=== PATIENT | female | born 1945 | race Caucasian/White ===

== ENCOUNTER 2019-01-05 20:42 | Inpatient (IN) ==
[2019-01-05 22:13] LABS: BASO# 0.03 X1000 (0.0-0.2); BASO% 0.1 % (0.0-0.8); EOS# 0.04 X1000 (0.0-0.7); EOS% 0.2 % (0.0-10.0); HEMATOCRIT 35.1 % (37.0-47.0); HEMOGLOBIN 11.6 g/dL (12.0-16.0); IMM GRAN# 0.09 X1000 (0.0-0.04); IMM GRAN% 0.4 % (0.0-0.5); LYMPH# 1.42 X1000 (1.2-3.4); LYMPH% 6.9 % (20.5-51.1); MCH 29.7 PG (27-31); MCV 89.8 FL (81-99); MONO% 7.7 % (1.7-9.3); MPV 9.7 FL (7.4-10.4); NEUT# 17.53 X1000 (1.4-6.5); NEUT% 84.7 % (42.2-75.2); PLT 319 X1000 (130-400); RBC 3.91 XMIL (4.2-5.4); RDW 13.9 % (11.5-14.5); WBC 20.71 X1000 (4.8-10.8)
[2019-01-05] MEDS ORDERED: VANCOMYCIN 1 GM/NS 1 GM/250 ML IVPB IV ONE (22:15)
[2019-01-05] MEDS ORDERED: NS 1,000 ML IV ONE ×2 (22:18→22:42)
[2019-01-05 22:25] LABS: AGAP 12; BUN 22 mg/dL (8-22); CALCIUM 8.2 mg/dL (8.8-10.2); CHLORIDE 98 mmol/L (98-107); COSMO 276; CREATININE 0.8 mg/dL (0.5-0.9); ESTIMATED GFR > 60; GLUCOSE 116 mg/dL (70-104); POTASSIUM 3.9 mmol/L (3.5-5.1); SODIUM 136 mmol/L (136-145); TCO2 26 mmol/L (25-35)
[2019-01-05 22:31] LABS: PTT 35.2 Seconds (22.3-41.8)
[2019-01-05] MEDS ORDERED: TORADOL IV PRN (22:42)
[2019-01-05] MEDS ORDERED: ROCEPHIN 1 GM in NS 50 ML IV ONE (22:42)
[2019-01-05 22:56] LABS: INR 1.25; PROTIME 16.3 Seconds (11.0-16.0)
--- NOTE | 2019-01-06 00:22 | PROVIDER DOCUMENTATION ---
This chart was entered by Mamta Shin Scribe, acting as scribe for Becky Saldana CRNP. HPI-General Adult - General Chief Complaint: Extremity Pain Stated Complaint: LEG PAIN & RASH Time Seen by Provider: 01/05/19 21:27 Source: patient Allergies/Adverse Reactions: Patient Allergies Allergy/AdvReac Type Severity Reaction Status Date / Time adhesive tape Allergy RASH Verified 01/05/19 21:27 Penicillins Allergy RASH Verified 01/05/19 21:27 Home Medications: Home Medication List Medication Instructions Recorded Confirmed Last Taken Type NK [No Home Medications] 01/05/19 01/05/19 Unknown History - History of Present Illness -Gen Adult Nature of Presenting Problems: 73 y/o female presents to ED with swelling and redness of bilateral lower extremities onset 3 weeks ago. RLE is worse than LLE. Pt reports she had a fever of 101 yesterday. Pt is alert and oriented. Location of Pain/Injury: reports: lower extremity Pain Radiation: reports: no radiation Quality of Pain: reports: fullness Severity: reports: moderate, severe Onset/Duration: reports: other (3 weeks ago) Timing: reports: still present Context/Activities at Onset: reports: none Modifying Factors: improves with: nothing Associated Symptoms: reports: fever/chills, other (swelling/redness of bilateral lower extremities) Similar Symptoms Previously?: No Recently seen or treated by another doctor?: No Review of Systems - Adult - REVIEW OF SYSTEMS - ADULT Constitutional: reports: fever. denies: chills Eyes: reports: no symptoms reported Ears, Nose, Mouth & Throat: reports: no symptoms reported Cardiovascular: denies: chest pain, palpitations Respiratory: denies: cough, shortness of breath Gastrointestinal: denies: abdominal pain, diarrhea, nausea, vomiting Genitourinary: reports: no symptoms reported Musculoskeletal: reports: other (swelling/redness of bilateral lower extremities). denies: back pain, joint pain Integumentary: reports: no symptoms reported Neurological: denies: dizziness/vertigo, seizure Psychiatric: reports: no symptoms reported Endocrine: reports: no symptoms reported Hematologic/Lymphatic: reports: no symptoms reported Allergic/Immunologic: reports: no symptoms reported All Other Systems: Reviewed and Negative Past History - Adult - PAST MEDICAL HISTORY-ADULT Review of Records: reports: Old Records Reviewed, Nursing Assessment Review, Medications Reviewed Major Childhood Illnesses: reports: denies history Respiratory: reports: asthma Gastrointestinal: reports: GERD Psychiatric: reports: anxiety, depression - PRIOR SURGERIES/PROCEDURES Surgical/Procedure History: reports: none - IMMUNIZATION STATUS Childhood Immunizations: See Nurse Assessment Flu Vaccine: See Nurse Assessment - FAMILY HISTORY Family History: reviewed, not pertinent - SOCIAL HISTORY Smoking: non-smoker Substance Use: none/never Alcohol Use Frequency: never Living Situation: family Physical Exam-General - PHYSICAL EXAM-ADULT Initial Vital Signs Reviewed: Yes - CONSTITUTIONAL General Appearance: appears well, alert, no apparent distress - EYES Eyes: PERRL/EOMI, pink conjunctivae - HEAD, EARS, NOSE, MOUTH & THROAT HENMT: normocephalic/atraumatic, moist mucous membranes, normal ENT inspection - NECK Neck: non-tender, full range of motion - RESPIRATORY Respiratory: chest non-tender, lungs clear, normal breath sounds - CARDIOVASCULAR Cardiovascular: normal peripheral pulses, regular rate, rhythm - GASTROINTESTINAL (ABDOMEN) Abdominal Exam: normal bowel sounds, non tender, soft - MUSCULOSKELETAL Back Exam: normal inspection, no CVA tenderness Extremity: normal range of motion, non-tender, normal gait, swelling (RLE red up to mid thigh with weeping pitting edema), other (RLE red up to mid thigh with weeping pitting edema; LLE mildly erythematic; broken skin to bilateral lower extremities with excoriation worse on the feet) - SKIN Integumentary: normal color, warm/dry, erythema (RLE red up to mid thigh with weeping pitting edema; LLE mildly erythematic), swelling (RLE red up to mid thigh with weeping pitting edema), other (broken skin to bilateral lower extremities with excoriation worse on the feet) - NEUROLOGIC Neurologic: grossly normal - PSYCHIATRIC Psych/Mental Status: normal mood/affect, normal thought content, normal thought process Progress - PLAN OF CARE/RESULTS Progress/Plan/Lab Results: Vital Signs - 8 hr 01/05/19 21:04 Temperature 98.6 F Pulse Rate 114 H Respiratory Rate 20 Blood Pressure 119/65 O2 Sat by Pulse Oximetry 97 Orders Category Date Time Status Admit - [facility] Routine AdmDCTranf 01/05/19 22:42 Active Activity - Up Ad Bibi ORDERED Care 01/05/19 22:42 Active Saline Loc DIRECTED Care 01/05/19 22:42 Active Saline Loc NOW Care 01/05/19 21:32 Active Vital Signs Order ROUTINE Care 01/05/19 22:42 Active Regular Diet Diet 01/05/19 22:44 Active BASIC METABOLIC PANEL [CHEM] Stat Lab 01/05/19 21:40 Completed BLOOD CULTURE [BLDCUL] Stat Lab 01/05/19 21:40 Ordered CBC WITH ELECTRONIC DIFF [HEME] Stat Lab 01/05/19 21:40 Completed LACTATE, PLASMA [CHEM] Stat Lab 01/05/19 21:40 Completed PRO B-NATRIURETIC PEPTIDE Stat Lab 01/05/19 21:40 Completed PT [PROTIME WITH INR] [COAG] Stat Lab 01/05/19 21:40 Completed PTT [COAG] Stat Lab 01/05/19 21:40 Completed TROPONIN T Stat Lab 01/05/19 21:40 Completed 0.9% Sodium Chloride Inj [Ns] 1,000 ml Med 01/05/19 22:42 Active IV 50 mls/hr 0.9% Sodium Chloride Inj [Ns] 1,000 ml Med 01/05/19 22:18 Active IV 999 mls/hr CefTRIAXONE [Rocephin] 1 gm Med 01/05/19 22:42 Discontinued 0.9% Sodium Chloride Inj [Ns] 50 ml IV NOW Ketorolac [Toradol] Med 01/05/19 22:42 Active 15 mg IV Q4H PRN PRN Vancomycin 1 gm/Ns Med 01/05/19 22:15 Active 1 gm in 250 ml IV NOW Oxygen Device Routine Oth 01/05/19 22:44 Active Transfer/Admit Order [TRANSFER] Routine Transfer 01/05/19 22:45 Ordered Laboratory Tests 01/05/19 01/05/19 01/05/19 21:40 21:40 21:40 WBC 20.71 H RBC 3.91 L Hgb 11.6 L Hct 35.1 L MCV 89.8 MCH 29.7 MCHC 33.0 RDW Std Deviation 13.9 Plt Count 319 MPV 9.7 Immature Gran % (Auto) 0.4 Neut % (Auto) 84.7 H Lymph % (Auto) 6.9 L Louisa % (Auto) 7.7 Eos % (Auto) 0.2 Baso % (Auto) 0.1 Immature Gran # (Auto) 0.09 H Neut # (Auto) 17.53 H Lymph # (Auto) 1.42 Louisa # (Auto) 1.60 H Eos # (Auto) 0.04 Baso # (Auto) 0.03 Segmented Neutrophils Not Reportable PT INR PTT (Actin FS) Sodium 136 Potassium 3.9 Chloride 98 Carbon Dioxide 26 Anion Gap 12 BUN 22 Creatinine 0.8 Estimated GFR/1.73 m2 > 60 BUN/Creatinine Ratio 28 Glucose 116 H Calculated Osmolality 276 Calcium 8.2 L Troponin T < 0.010 Tyd-N-Cqirnfqugpw Pept Plasma Lactate 01/05/19 01/05/19 01/05/19 21:40 21:40 21:40 WBC RBC Hgb Hct MCV MCH MCHC RDW Std Deviation Plt Count MPV Immature Gran % (Auto) Neut % (Auto) Lymph % (Auto) Louisa % (Auto) Eos % (Auto) Baso % (Auto) Immature Gran # (Auto) Neut # (Auto) Lymph # (Auto) Louisa # (Auto) Eos # (Auto) Baso # (Auto) Segmented Neutrophils PT 16.3 H INR 1.25 PTT (Actin FS) 35.2 Sodium Potassium Chloride Carbon Dioxide Anion Gap BUN Creatinine Estimated GFR/1.73 m2 BUN/Creatinine Ratio Glucose Calculated Osmolality Calcium Troponin T Ghk-E-Rhwnddgwpyk Pept 981 H Plasma Lactate 1.6 Result Diagrams: 01/05/19 21:40 01/05/19 21:40 - CONSULTS/PCP/HOSPITALIST Notification #1 *Consult/PCP/Hospitalist*: Dr. Quintana Time Discussed: 22:41 Reason/Comments: Cellulitis Consult Disposition: Admit Departure - Departure Date of Disposition Decision: 01/05/19 Time of Disposition Decision: 22:41 DIAGNOSIS: Cellulitis Qualifiers: Site of cellulitis: extremity Site of cellulitis of extremity: lower extremity Laterality: unspecified laterality Qualified Code(s): L03.119 - Cellulitis of unspecified part of limb Disposition: ADMITTED INPATIENT 09 Certified Medical Emergency: Emergent Condition: Fair Referrals and Follow-Ups: None,PCP [Primary Care Provider] - - Critical Care Note This patient required my direct & personal management of CC.: No Attestation - Physician/ MAX Attestation Patient care was provided by Advanced Practice Provider:: Yes Advanced Practice Provider:: Becky Saldana Advanced Practice Provider documentation review:: The Mid-level provider documentation, treatment plan and medical decision making was reviewed by the physician who agrees with all treatment and medical decision making by the MLP. The physician spent face to face time with patient:: No Advanced Practice Provider documentation review:: Supervising physician onsite and consulted in the evaluation and care of this patient. The physician did not have a face to face encounter with the patient. This chart was documented by the indicated scribe, (Mamta Shin, Anh) and accurately reflects the services I performed and decisions made by me, Becky Saldana CRNP, as attested by the provider's signature.
[2019-01-06 04:03] LABS: BILIRUBIN URINE NEGATIVE (NEGATIVE); BLOOD URINE NEGATIVE (NEGATIVE); CLARITY CLEAR (CLEAR); COLOR AMBER; GLUCOSE URINE NEGATIVE (NEGATIVE); KETONE URINE TRACE mg/dL (NEGATIVE); LEUKOCYTES URINE 1+ (NEGATIVE); NITRITE URINE NEGATIVE (NEGATIVE); PH URINE 6.5; PROTEIN URINE 1+(30 mg/dL) mg/dL (NEGATIVE); URINE BACTERIA 2+ /HFP; URINE EPITHELIAL CELLS <10 /HPF (<10); URINE RBC <10 /HPF (<10); URINE WBC <10 /HPF (<10); UROBILINOGEN URINE 8 mg/dL
[2019-01-06 04:04] LABS: URINE SOURCE CLEAN CATCH
[2019-01-06] MEDS ORDERED: VANCOMYCIN IV PER PHARMACY MISC SCH (10:30)
--- NOTE | 2019-01-06 11:02 | HISTORY AND PHYSICAL ---
PRIMARY CARE PHYSICIAN: None. CHIEF COMPLAINT: Of bilateral lower extremity redness and swelling for the past 3 weeks that progressively worsened with right lower extremity being worse than the left. Also noted a subjective fever of 101 yesterday prior to arrival. HISTORY OF PRESENTING ILLNESS: This is a 73-year-old female who presents to [facility] ER with complaints of bilateral lower extremity redness and swelling for the past 3 weeks. States she had a subjective fever of 101 prior to coming into the emergency room yesterday when she arrived her temperature was 98.6 degrees, Her white blood cell count was 20.71. She was noted to have bilateral lower extremity erythema, edema, warmth to touch. Right was greater than left with excoriations and broken skin to bilateral lower extremities and weeping pitting edema so she was admitted for further evaluation and treatment. PAST MEDICAL HISTORY: Of asthma, GERD, depression. PAST SURGICAL HISTORY: None. FAMILY HISTORY: Reviewed and noncontributory. SOCIAL HISTORY: She currently lives with family. Denies any tobacco, alcohol or illicit drug use. ALLERGIES: To adhesive tape and penicillin. HOME MEDICATIONS: She takes Prilosec 20 mg p.o. daily. LABORATORY DATA: Showed a white blood cell count of 20.71, hemoglobin of 11.6, hematocrit 35.1, platelets 319,000. PT and INR of 16.3 and 1.25. Sodium of 136, potassium 3.9, chloride 98, CO2 26, BUN of 22, creatinine 0.8, glucose 116, troponin less than 0.010 proBNP of 981. Plasma lactate 1.6. Urinalysis is negative except for 1+ white blood cells, 2+ bacteria. REVIEW OF SYSTEMS: She denied prior. She was positive for a subjective fever denied any chills, blurred vision, dizziness, chest pain, coughing, shortness of breath. She denied any abdominal pain, constipation, diarrhea, burning or hurting with urination. She was positive to for pain to bilateral lower extremities with erythema edema warmth to touch and weeping edema to bilateral lower extremities noted as well. PHYSICAL EXAMINATION: On arrival she had a temperature of 98.6 degrees pulse 114, respirations 20, blood pressure 119/65 saturating 97% on room air. GENERAL: This is a 73-year-old female who is lying in the bed and answers questions appropriately. HEENT: Normocephalic, atraumatic. Normal ENT inspection. Oropharynx and nares are clear. EYES: Pupils are equal, round, reactive to light and accommodation. Extraocular movements are intact. NECK: Normal inspection normal range of motion. LUNGS: Clear to auscultation bilaterally with equal lung expansion and chest wall movement. HEART: With regular rate and rhythm. No murmurs, rubs, or gallops. ABDOMEN: Soft, nontender, nondistended. Bowel sounds are present x4 quadrants. MUSCULOSKELETAL: She has 5/5 strength x4. EXTREMITIES: Skin plan she has bilateral lower extremity erythema edema warmth to touch from her bilateral feet all the way up to mid thigh with weeping pitting edema noted some broken. SKIN: With excoriations that are worse on the feet and the right leg is greater than the left leg with her edema and erythema. NEUROLOGICAL: The grainy cranial nerves 2-12 appear grossly intact. ASSESSMENT: 1. Bilateral lower extremity cellulitis. 2. Leukocytosis. 3. Urinary tract infection. 4. Leukocytosis. 5. Gastroesophageal reflux disease. PLAN: She was admitted to the medical unit at [facility] and we will place her on Rocephin 1 gram IV q.24, vancomycin per pharmacy protocol. Recheck a urine culture and blood culture x2. She is on a regular diet. We will recheck a CBC BMP in the a.m. and further orders after seen by attending for score of on this is kidney Thurman p.r.n. pain dictating for Dictated by BRANDON Torres for Miguelangel Polanco MD Addendum: Patient seen and examined by myself. Agree with BRANDON note. It reflects my assessment and plan. Patient is being admitted to hospital for bilateral LE cellulitis so will start Vancomycin and Rocephin. She also has UTI and will wait for results of urine culture to tailor antibiotic therapy. cc: BRANDON Torres MD [facility]
[2019-01-06] MEDS ORDERED: VANCOMYCIN 1,550 MG in NS 250 ML IV ONE (11:30)
[2019-01-06] MEDS: TYLENOL PO PRN (14:55)
[2019-01-06] MEDS: DUONEB (A & A) INH PRN (15:40)
[2019-01-06] MEDS: DULERA 200 MCG/5 MCG INHALER INH SCH (20:01)
[2019-01-06] MEDS: ROCEPHIN 1 GM in NS 50 ML IV SCH (21:23)
[2019-01-07 06:37] LABS: BASO# 0.04 X1000 (0.0-0.2); BASO% 0.4 % (0.0-0.8); EOS# 0.13 X1000 (0.0-0.7); EOS% 1.2 % (0.0-10.0); HEMATOCRIT 33.1 % (37.0-47.0); HEMOGLOBIN 10.7 g/dL (12.0-16.0); IMM GRAN# 0.05 X1000 (0.0-0.04); IMM GRAN% 0.5 % (0.0-0.5); LYMPH# 1.32 X1000 (1.2-3.4); LYMPH% 12.4 % (20.5-51.1); MCH 29.1 PG (27-31); MCHC 32.3 g/dL (33-37); MCV 89.9 FL (81-99); MONO% 8.5 % (1.7-9.3); MPV 9.3 FL (7.4-10.4); NEUT# 8.17 X1000 (1.4-6.5); PLT 313 X1000 (130-400); RBC 3.68 XMIL (4.2-5.4); WBC 10.61 X1000 (4.8-10.8)
[2019-01-07 06:54] LABS: AGAP 11; BUN 15 mg/dL (8-22); CALCIUM 7.9 mg/dL (8.8-10.2); CHLORIDE 105 mmol/L (98-107); COSMO 280; CREATININE 0.6 mg/dL (0.5-0.9); ESTIMATED GFR > 60; GLUCOSE 100 mg/dL (70-104); POTASSIUM 3.2 mmol/L (3.5-5.1); SODIUM 140 mmol/L (136-145); TCO2 24 mmol/L (25-35)
[2019-01-07] MEDS: PRILOSEC PO SCH (07:01)
[2019-01-07 07:17] LABS: BANDS 1 % (0-1); EOS 1 % (1-10); LYMPHS 12 % (21-51); MONO 1 % (1-9); SEGS 85 % (42-75)
[2019-01-07] MEDS: DULERA 200 MCG/5 MCG INHALER INH SCH ×2 (07:55→19:17)
[2019-01-07] MEDS: DUONEB (A & A) INH PRN (07:56)
[2019-01-07] MEDS: TYLENOL PO PRN ×2 (13:15→19:59)
--- NOTE | 2019-01-07 14:55 | PROGRESS NOTE ---
DATE: 01/07/2019 SUBJECTIVE: Patient reports feeling fine. She noted less reddening in both lower extremities but mostly on the right leg. OBJECTIVE: Vitals: Temperature 97.9 degrees, heart rate 89, respiratory 18, blood pressure 121/56, O2 saturation 100% on room air. General: This is a chronically ill- appearing 73-year- old female lying in bed in no acute distress. Cardiovascular: S1, S2 heard. No murmurs, gallops, or rubs. Regular rate and rhythm. Respiratory: Clear bilaterally to auscultation. No work of breathing or using accessory muscles. Abdomen: Soft, nontender to palpation. Bowel sounds present. No organomegaly. Extremities: Bilateral lower extremity edema is still warm to touch is a little bit better in compared with yesterday. There is also many weeping lesions around right lower extremity with excoriations as well. Neurological: Patient alert oriented x3. Move 4 extremities. Cranial nerves 2-12 grossly normal. LABORATORY DATA: White cell count 10.61, hemoglobin 10.7, hematocrit 33.1, platelets 313,000 with potassium 3.2. ASSESSMENT AND PLAN: 1. Lower extremity cellulitis, clinically this patient is doing better. There is a mild improvement clinically with less reddening in right lower extremity. White cell count is back to normal today, is not spiking any fever at this point, will continue with vancomycin and ceftriaxone. 2. Urinary tract infection. The urine culture actually showed no growth so at this point will continue with same management. 3. Leukocytosis secondary to bilateral lower extremity cellulitis and that is resolved. 4. Gastroesophageal reflux disease. Will continue Protonix. 5. Disposition. Will continue to monitor this patient closely with current antibiotic therapy. cc: Miguelangel Polanco MD [facility]
[2019-01-07] MEDS: VANCOMYCIN 1,250 MG in NS 250 ML IV SCH (17:24)
[2019-01-07] MEDS: ROCEPHIN 1 GM in NS 50 ML IV SCH (21:19)
[2019-01-08] MEDS: TYLENOL PO PRN ×4 (03:24→23:33)
[2019-01-08] MEDS: PRILOSEC PO SCH (06:06)
[2019-01-08 06:44] LABS: BASO# 0.03 X1000 (0.0-0.2); BASO% 0.4 % (0.0-0.8); EOS# 0.26 X1000 (0.0-0.7); EOS% 3.9 % (0.0-10.0); HEMATOCRIT 32.6 % (37.0-47.0); HEMOGLOBIN 10.6 g/dL (12.0-16.0); IMM GRAN# 0.09 X1000 (0.0-0.04); IMM GRAN% 1.3 % (0.0-0.5); LYMPH# 1.09 X1000 (1.2-3.4); LYMPH% 16.2 % (20.5-51.1); MCH 29.2 PG (27-31); MCHC 32.5 g/dL (33-37); MCV 89.8 FL (81-99); MONO# 0.79 X1000 (0.11-0.59); MONO% 11.7 % (1.7-9.3); MPV 9.4 FL (7.4-10.4); NEUT# 4.48 X1000 (1.4-6.5); NEUT% 66.5 % (42.2-75.2); PLT 301 X1000 (130-400); RBC 3.63 XMIL (4.2-5.4); WBC 6.74 X1000 (4.8-10.8)
[2019-01-08 06:48] LABS: AGAP 10; BUN 11 mg/dL (8-22); CALCIUM 7.7 mg/dL (8.8-10.2); CHLORIDE 103 mmol/L (98-107); COSMO 275; CREATININE 0.5 mg/dL (0.5-0.9); ESTIMATED GFR > 60; GLUCOSE 91 mg/dL (70-104); POTASSIUM 2.9 mmol/L (3.5-5.1); SODIUM 138 mmol/L (136-145); TCO2 25 mmol/L (25-35)
[2019-01-08] MEDS: DULERA 200 MCG/5 MCG INHALER INH SCH ×2 (07:25→19:21)
[2019-01-08] MEDS ORDERED: KLOR-CON PO ONE (11:45)
[2019-01-08] MEDS: BACTROBAN OINTMENT TOP SCH ×2 (12:20→21:46)
--- NOTE | 2019-01-08 13:31 | PROGRESS NOTE ---
DATE: 01/08/2019 SUBJECTIVE: Patient reports feeling fine. Denies any fever or chills. OBJECTIVE: Vital Signs: Temperature 98 degrees, heart rate 72, respiratory rate 18, blood pressure 128/65, O2 saturation 100% on room air. General: This is a 73-year-old female lying in bed, in no acute distress. Cardiovascular: S1, S2 heard. No murmurs, gallops, or rubs. Regular rate and rhythm. Respiratory: Clear bilaterally to auscultation. No work of breathing or using accessory muscles. Abdomen: Soft, nontender to palpation. Bowel sounds present. No organomegaly. Extremities: Bilateral lower extremities are warm to touch. All the right lower extremity is red completely but a little bit better in comparing with yesterday. There are many weeping lesions around it. Neurological: Patient is alert and oriented x3. Moves 4 extremities. LABORATORY DATA: Reviewed. ASSESSMENT AND PLAN: 1. Bilateral lower extremity cellulitis. Clinically, this patient is doing better. White cell count is doing better. At this point, we will continue with vancomycin and we will change ceftriaxone for clindamycin and we will go from there. 2. Urinary tract infection. Ruled it out. 3. Leukocytosis secondary to cellulitis, resolved. 4. Gastroesophageal reflux disease. We will continue with Protonix. 5. Disposition. At this point, we will continue to monitor this patient closely with current antibiotic therapy. Most likely, we will keep this patient for a couple days more and then will be discharged. cc: Miguelangel Polanco MD
[2019-01-08] MEDS: CLINDAMYCIN 900 MG/D5W 900 MG/50 ML IVPB IV SCH ×2 (14:25→21:47)
[2019-01-08] MEDS: VANCOMYCIN 1,250 MG in NS 250 ML IV SCH (23:22)
[2019-01-09] MEDS: PRILOSEC PO SCH ×2 (05:53→07:41)
[2019-01-09] MEDS: CLINDAMYCIN 900 MG/D5W 900 MG/50 ML IVPB IV SCH ×3 (05:53→21:01)
[2019-01-09] MEDS: TYLENOL PO PRN ×3 (06:27→20:49)
[2019-01-09] MEDS: DULERA 200 MCG/5 MCG INHALER INH SCH ×2 (07:30→19:18)
[2019-01-09 07:43] LABS: BASO# 0.05 X1000 (0.0-0.2); BASO% 0.5 % (0.0-0.8); EOS# 0.25 X1000 (0.0-0.7); EOS% 2.4 % (0.0-10.0); HEMOGLOBIN 11.3 g/dL (12.0-16.0); IMM GRAN# 0.18 X1000 (0.0-0.04); IMM GRAN% 1.8 % (0.0-0.5); LYMPH# 1.71 X1000 (1.2-3.4); LYMPH% 16.7 % (20.5-51.1); MCH 28.9 PG (27-31); MCHC 32.3 g/dL (33-37); MCV 89.5 FL (81-99); MONO# 1.09 X1000 (0.11-0.59); MONO% 10.6 % (1.7-9.3); MPV 9.5 FL (7.4-10.4); NEUT# 6.97 X1000 (1.4-6.5); PLT 328 X1000 (130-400); RBC 3.91 XMIL (4.2-5.4); RDW 14.2 % (11.5-14.5); WBC 10.25 X1000 (4.8-10.8)
[2019-01-09 07:48] LABS: AGAP 13; BUN 10 mg/dL (8-22); CALCIUM 7.8 mg/dL (8.8-10.2); CHLORIDE 105 mmol/L (98-107); COSMO 276; CREATININE 0.5 mg/dL (0.5-0.9); ESTIMATED GFR > 60; GLUCOSE 95 mg/dL (70-104); POTASSIUM 3.6 mmol/L (3.5-5.1); SODIUM 139 mmol/L (136-145); TCO2 21 mmol/L (25-35)
[2019-01-09 09:08] LABS: EOS 2 % (1-10); LYMPHS 22 % (21-51); MONO 6 % (1-9); SEGS 70 % (42-75)
[2019-01-09] MEDS: BACTROBAN OINTMENT TOP SCH ×2 (09:17→20:51)
--- NOTE | 2019-01-09 11:55 | PROGRESS NOTE ---
DATE: 01/09/2019 SUBJECTIVE: The patient reports feeling fine. Reports less reddening in the right lower extremity. OBJECTIVE: Vital Signs: Temperature 97.5 degrees, heart rate 81, respiratory rate 18, blood pressure 123/68, O2 saturation 98% on room air. General: This is a 73-year-old female lying in bed, in no acute distress. Cardiovascular: S1, S2 heard. No murmurs, gallops, or rubs. Regular rate and rhythm. Respiratory: Clear bilaterally to auscultation. No work of breathing or using accessory muscles. Abdomen: Soft, nontender to palpation. Bowel sounds present. No organomegaly. Extremities: Bilateral lower extremities warm to touch. Definitely there is less reddening in the right lower extremity, still some weeping lesions around it, getting better too. Neurologic: The patient alert and oriented x3, moving all 4 extremities. ASSESSMENT AND PLAN: 1. Bilateral lower extremity cellulitis. Clinically, this patient is doing better. She is having less reddening in both lower extremities. White cell count is back to normal. At this point, we will continue with vancomycin and clindamycin. I think this patient will be ready to go home within the next 24 to 48 hours. 2. Urinary tract infection ruled out. 3. Gastroesophageal reflux disease. We will continue Protonix. DISPOSITION: I think at this point, the patient is getting better so will be discharged within the next 24 to 48 hours. cc: Miguelangel Polanco MD
[2019-01-09] MEDS ORDERED: MOTRIN PO PRN (20:51)
--- NOTE | 2019-01-10 04:03 | EKG Report ---
Test Performed on : 01/09/2019 8:28:59 PM Test Reason : ring rate Blood Pressure : / mmHG Vent. Rate : 097 BPM Atrial Rate : 097 BPM P-R Int : 100 ms QRS Dur : 072 ms QT Int : 344 ms P-R-T Axes : 039 021 015 degrees QTc Int : 436 ms Sinus rhythm. with short AR Otherwise normal ECG No previous ECGs available Confirmed by Maldonado Macdonald MD ([id number]) on 01/10/2019 7:28:41 AM
[2019-01-10] MEDS: PRILOSEC PO SCH (06:01)
[2019-01-10] MEDS: CLINDAMYCIN 900 MG/D5W 900 MG/50 ML IVPB IV SCH (06:01)
[2019-01-10 07:13] LABS: BASO# 0.03 X1000 (0.0-0.2); BASO% 0.3 % (0.0-0.8); EOS# 0.27 X1000 (0.0-0.7); EOS% 3.1 % (0.0-10.0); HEMATOCRIT 32.4 % (37.0-47.0); HEMOGLOBIN 10.6 g/dL (12.0-16.0); IMM GRAN# 0.17 X1000 (0.0-0.04); LYMPH# 1.28 X1000 (1.2-3.4); LYMPH% 14.8 % (20.5-51.1); MCH 29.2 PG (27-31); MCHC 32.7 g/dL (33-37); MCV 89.3 FL (81-99); MONO% 10.4 % (1.7-9.3); MPV 9.2 FL (7.4-10.4); NEUT# 5.98 X1000 (1.4-6.5); NEUT% 69.4 % (42.2-75.2); PLT 308 X1000 (130-400); RBC 3.63 XMIL (4.2-5.4); RDW 14.4 % (11.5-14.5); WBC 8.63 X1000 (4.8-10.8)
[2019-01-10 07:27] LABS: AGAP 9; BUN 12 mg/dL (8-22); CALCIUM 7.4 mg/dL (8.8-10.2); CHLORIDE 106 mmol/L (98-107); COSMO 277; CREATININE 0.6 mg/dL (0.5-0.9); ESTIMATED GFR > 60; GLUCOSE 89 mg/dL (70-104); SODIUM 139 mmol/L (136-145); TCO2 24 mmol/L (25-35)
[2019-01-10] MEDS: DULERA 200 MCG/5 MCG INHALER INH SCH (07:43)
[2019-01-10] MEDS ORDERED: VANCOMYCIN 1,250 MG in NS 250 ML IV SCH (08:00)
[2019-01-10] MEDS: BACTROBAN OINTMENT TOP SCH (08:06)
[2019-01-10] MEDS: TYLENOL PO PRN (10:41)
[2019-01-10 11:28] VITALS: BP 136/69
--- NOTE | 2019-01-12 13:45 | DISCHARGE SUMMARY ---
ADMISSION DATE: 01/05/2019 DISCHARGE DATE: 01/10/2019 PRIMARY CARE PHYSICIAN: Listed as none. ADMISSION DIAGNOSES: 1. Bilateral lower extremity cellulitis. 2. Leukocytosis. 3. Urinary tract infection. 4. Gastroesophageal reflux disease. DISCHARGE DIAGNOSES: 1. Bilateral lower extremity cellulitis. 2. Leukocytosis, resolved. 3. Urinary tract infection with no pathogenic growth per culture. 4. Gastroesophageal reflux disease. SUMMARY OF FINDINGS: This is a 73-year-old female who presented with complaints of bilateral lower extremity redness and swelling for 3 weeks that progressively worsened, had a subjective fever of 101, but when she arrived, her temperature was 98.6 degrees. White blood cell count was elevated at 20.71. She was noted to have bilateral lower extremity erythema, edema, and warmth to touch. Right was greater than left with excoriations and broken skin to bilateral extremities and weeping pitting edema. She was admitted and placed on IV antibiotics. Her urinalysis had 1+ white blood cells, 2+ bacteria, but her urine culture showed no pathogenic growth. Blood culture showed no growth after 5 days. She responded well to IV antibiotics. She had no fever for greater than 24 hours, and on day of discharge, her temperature was 98. Her white blood cell count on the day of discharge is 8.63, so it is felt that she can safely be discharged home. DISCHARGE MEDICATIONS: Include prescription for Cleocin 300 mg p.o. q.8 h., #42 with no refills; doxycycline 100 mg p.o. b.i.d., #28 with no refills; Bactroban ointment topically b.i.d., #3 to use with no refill. Continue her omeprazole 20 mg p.o. daily. FOLLOW-UP: She needs to follow up with Infectious Disease, Dr. Singleton, and call the office to get an appointment within the next 1 to 2 weeks. All discharge instructions have been reviewed with the patient, and she verbalized understanding. COORDINATION TIME: A 33-minute discharge. Dictated by BRANDON Torres for Miguelangel Polanco MD Addendum: Patient seen and examined by myself. Agree with BRANDON note. It reflects my assessment and plan. Patient is being discharged in stable condition. Will be seen by Dr. Singleton, ID , next week. She needs to call his office to make an appointment. cc: BRANDON Torres MD [facility]
== END 2019-01-10 14:00 | disposition home or self-care (01) | DRG 603 ==
LOC: P.ED 20:42 → SUATTDRO 23:59 → P.MEDSURG 23:59
PROVIDERS: ATTEND Internal Medicine
CPT/HCPCS: 36415; 80048; 80202; 81001; 83605; 83880; 84484; 85025; 85610; 85730; 87040; 87088; 93005; 93010; 94640; 94761; 96361; 96365; 99284; A9270; J0696; J3370; J7030; J7050